=== PATIENT | male | born 1985 | race Caucasian/White ===

== ENCOUNTER → 2016-11-19 | Outpatient (CLI) | payer MEDICAID | END | disposition home or self-care (01) | LOC: RAD 17:59 | PROVIDERS: ATTEND Family Medicine | DX: N50.82 Scrotal pain (principal) | CPT/HCPCS: 76870 ==

== ENCOUNTER 2017-11-29 23:15 | Emergency (ER) | payer MEDICAID ==
[~2017-11-29] VITALS: Ht 162.6 cm; Wt 85.0 kg
[2017-11-29 23:20] VITALS: BP 119/76
== END 2017-11-29 23:44 | disposition home or self-care (01) ==
LOC: ED 23:38
DX: S61.211A Laceration without foreign body of left index finger without damage to nail, initial encounter (principal); W26.8XXA Contact with other sharp object(s), not elsewhere classified, initial encounter; Y93.89 Activity, other specified; Y92.098 Other place in other non-institutional residence as the place of occurrence of the external cause; Y99.8 Other external cause status
CPT/HCPCS: 99281